=== PATIENT | male | born 1980 | race Caucasian/White ===

== ENCOUNTER 2017-10-11 09:50 | Inpatient (IN) | payer OTHER, SELFPAY ==
[~2017-10-11] VITALS: Ht 182.9 cm; Wt 96.9 kg
[2017-10-11] MEDS ORDERED: KETOROLAC 30 MG/1 ML IVPush ONE (10:30)
[2017-10-11 10:39] LABS: BASOPHILS # (AUTO) 0.05 x10^3/uL (0-0.1); BASOPHILS % (AUTO) 0 % (0-1); EOSINOPHILS # (AUTO) 0.18 x10^3/uL (0-0.4); EOSINOPHILS % (AUTO) 2 % (1-7); LYMPHOCYTES % (AUTO) 14 % (22-44); MD NO; MEAN CORPUSCULAR HEMOGLOBIN 30.5 pg (27.5-34.5); MEAN CORPUSCULAR HGB CONC 33.9 g/dL (33.2-36.2); MEAN CORPUSCULAR VOLUME 90.1 fL (81-97); MEAN PLATELET VOLUME 7.5 fL (7.4-10.4); MONOCYTES % (AUTO) 11 % (2-9); NEUTROPHILS # (AUTO) 7.59 x10^3/uL (1.8-6.8); NEUTROPHILS % (AUTO) 73 % (42-75); PLATELET COUNT 342 x10^3/uL (130-400); RED CELL DISTRIBUTION WIDTH 12.8 % (9.4-14.8)
[2017-10-11] MEDS ORDERED: KETOROLAC 30 MG/1 ML ONE (10:40)
[2017-10-11 10:46] LABS: ALBUMIN 3.5 g/dL (3.4-5.0); ANION GAP 9 mmol/L (5-15); CALCIUM 9.4 mg/dL (8.5-10.1); CHLORIDE 104 mmol/L (98-107); CREATININE 1.48 mg/dL (0.7-1.3)
[2017-10-11 10:47] LABS: INTERNATIONAL NORMALIZED RATIO 0.94 (0.93-1.1); PROTHROMBIN TIME 9.7 Seconds (9.6-11.5)
[2017-10-11 10:50] LABS: TROPONIN I < 0.015 ng/mL (0.000-0.045)
[2017-10-11] MEDS ORDERED: SODIUM CHLORIDE FLUSH 10ML SYR IVF ONE (11:30)
[2017-10-11] MEDS ORDERED: OMNIPAQUE 350 MG/ML, 100ML BOTTLE ONE (11:39)
[2017-10-11] MEDS ORDERED: HEPARIN 5,000 UNITS/ML, 1ML IV ONE ×2 (12:30→16:30)
[2017-10-11] MEDS ORDERED: HEPARIN 5,000 UNITS/ML, 1ML IV PRN (12:30)
[2017-10-11] MEDS ORDERED: HEPARIN 25,000 UNITS/500ML PMX 500 ML IV PRN ×2 (12:30→16:30)
[2017-10-11] MEDS ORDERED: HEPARIN 5,000 UNITS/ML, 1ML ONE ×2 (12:32→12:42)
[2017-10-11] MEDS ORDERED: HEPARIN 25,000 UNITS/500ML PMX 500 ML ONE (12:32)
[2017-10-11] MEDS ORDERED: SODIUM CHLORIDE FLUSH 10ML SYR IVF PRN (13:00)
[2017-10-11] MEDS ORDERED: ONDANSETRON 2MG/ML, 2ML ONE (13:53)
[2017-10-11] MEDS ORDERED: MORPHINE SULFATE 4 MG/ML, 1ML ONE (13:53)
[2017-10-11] MEDS ORDERED: HYDROmorphone 2 MG/ML, 1ML IVPush PRN (14:00)
[2017-10-11] MEDS ORDERED: MORPHINE SULFATE 4 MG/ML, 1ML IVPush PRN (14:00)
[2017-10-11] MEDS ORDERED: ONDANSETRON 2MG/ML, 2ML IVPush ONE (14:00)
[2017-10-11 15:15] VITALS: BP 125/83
[2017-10-11] MEDS ORDERED: ACETAMINOPHEN 325 MG TABLET PO PRN (16:00)
[2017-10-11] MEDS ORDERED: HYDROcodone/APAP 5/325 TABLET PO PRN (16:00)
[2017-10-11] MEDS ORDERED: TEMAZEPAM 15 MG CAPSULE PO PRN (16:00)
[2017-10-11] MEDS ORDERED: ONDANSETRON 2MG/ML, 2ML IVPush PRN (16:00)
[2017-10-11] MEDS ORDERED: BISACODYL 10 MG SUPP PR PRN (16:30)
[2017-10-11 16:50] LABS: MEAN CORPUSCULAR HEMOGLOBIN 30.6 pg (27.5-34.5); MEAN CORPUSCULAR HGB CONC 33.9 g/dL (33.2-36.2); MEAN CORPUSCULAR VOLUME 90.3 fL (81-97); MEAN PLATELET VOLUME 7.4 fL (7.4-10.4); PLATELET COUNT 333 x10^3/uL (130-400); RED BLOOD COUNT 4.87 x10^6/uL (4.38-5.82); RED CELL DISTRIBUTION WIDTH 12.8 % (9.4-14.8)
[2017-10-11 17:27] LABS: MD SCAN
[2017-10-11 17:28] LABS: BASOPHILS # (AUTO) 0.02 x10^3/uL (0-0.1); BASOPHILS % (AUTO) 0 % (0-1); EOSINOPHILS # (AUTO) 0.21 x10^3/uL (0-0.4); EOSINOPHILS % (AUTO) 3 % (1-7); LYMPHOCYTES # (AUTO) 2.08 x10^3/uL (1-3.4); LYMPHOCYTES % (AUTO) 27 % (22-44); MONOCYTES # (AUTO) 0.83 x10^3/uL (0.2-0.8); MONOCYTES % (AUTO) 11 % (2-9); NEUTROPHILS # (AUTO) 4.61 x10^3/uL (1.8-6.8); NEUTROPHILS % (AUTO) 60 % (42-75)
[2017-10-11] MEDS: SODIUM CHLORIDE 0.9% 1,000 ML IV SCH (18:41)
[2017-10-11] MEDS: HYDROmorphone 2 MG/ML, 1ML IVPush PRN (18:41)
[2017-10-11] MEDS: WARFARIN 7.5 MG TABLET PO-COUM SCH (18:43)
[2017-10-11 20:08] VITALS: BP 120/78
[2017-10-11] MEDS: HEPARIN 5,000 UNITS/ML, 1ML IV PRN (20:12)
[2017-10-11 21:00] VITALS: BP 120/62
[2017-10-12 00:16] VITALS: BP 108/71
[2017-10-12 02:46] LABS: INTERNATIONAL NORMALIZED RATIO 0.99 (0.93-1.1); PROTHROMBIN TIME 10.2 Seconds (9.6-11.5)
[2017-10-12 02:49] LABS: ALANINE AMINOTRANSFERASE 19 U/L (12-78); ANION GAP 6 mmol/L (5-15); CALCIUM 8.7 mg/dL (8.5-10.1); CHLORIDE 105 mmol/L (98-107); CREATININE 1.25 mg/dL (0.7-1.3)
[2017-10-12 02:53] LABS: ALKALINE PHOSPHATASE 80 U/L (45-117); BILIRUBIN,TOTAL 0.3 mg/dL (0.2-1.0); CHOL/HDL RATIO 3.1; CHOLESTEROL, TOTAL 138 mg/dL (140-239); HDL CHOL % 32 % (26-37); HDL CHOLESTEROL (DIRECT) 44 mg/dL (40-60); LDL CHOLESTEROL,CALCULATED 75 mg/dL (54-169); LDL/HDL RATIO 1.7 (0.5-3.0); TOTAL PROTEIN 6.8 g/dL (6.4-8.2); TRIGLYCERIDES 96 mg/dL (50-200); VLDL CHOLESTEROL 19 mg/dL (0-25)
[2017-10-12] MEDS: HEPARIN 5,000 UNITS/ML, 1ML IV PRN ×2 (02:57→09:42)
[2017-10-12] MEDS: SODIUM CHLORIDE 0.9% 1,000 ML IV SCH (04:38)
[2017-10-12 06:54] VITALS: BP 122/81
[2017-10-12] MEDS: POLYETHYLENE GLYCOL 17 GM PACKET PO SCH (08:40)
[2017-10-12 12:31] VITALS: BP 113/74
[2017-10-12] MEDS ORDERED: OMNIPAQUE 350 MG/ML, 100ML BOTTLE ONE (13:20)
[2017-10-12] MEDS: HYDROmorphone 2 MG/ML, 1ML IVPush PRN (15:08)
[2017-10-12] MEDS: ENOXAPARIN 100 MG/ML SQ SCH (15:48)
[2017-10-12] MEDS: WARFARIN 7.5 MG TABLET PO-COUM SCH (18:44)
[2017-10-12 19:46] VITALS: BP 126/79
[2017-10-13 01:02] VITALS: BP 131/70
[2017-10-13] MEDS: ENOXAPARIN 100 MG/ML SQ SCH (04:54)
[2017-10-13 05:41] LABS: INTERNATIONAL NORMALIZED RATIO 1.06 (0.93-1.1); PROTHROMBIN TIME 10.9 Seconds (9.6-11.5)
[2017-10-13 06:56] VITALS: BP 112/69
[2017-10-13] MEDS: POLYETHYLENE GLYCOL 17 GM PACKET PO SCH (08:55)
[2017-10-13] MEDS ORDERED: POLY17PO5 PO (11:35)
[2017-10-13] MEDS ORDERED: KETO10TA PO (11:35)
[2017-10-13] MEDS ORDERED: TRAM50TA2 PO (11:35)
[2017-10-13] MEDS ORDERED: SIMV20TA PO (11:35)
[2017-10-13] MEDS ORDERED: WARF7.5T PO-COUM (11:36)
[2017-10-13] MEDS ORDERED: ENOX100S4 SQ (11:36)
[2017-10-13 12:15] VITALS: BP 112/71
== END 2017-10-13 16:12 | disposition home or self-care (01) | DRG 682 ==
LOC: ED 12:40 → EDIP 12:41 → ED 12:45 → 4EST 14:56
PROVIDERS: ADMIT Internal Medicine; ATTEND Internal Medicine
DX: N17.0 Acute kidney failure with tubular necrosis (principal); I26.99 Other pulmonary embolism without acute cor pulmonale; K59.00 Constipation, unspecified; Z79.01 Long term (current) use of anticoagulants; Z82.49 Family history of ischemic heart disease and other diseases of the circulatory system; Z98.52 Vasectomy status
CPT/HCPCS: 36415; 71275; 74177; 80048; 80053; 80061; 81241; 82040; 83735; 84100; 84443; 84484; 85025; 85303; 85306; 85520; 85598; 85610; 85613; 85670; 85730; 85732; 86146; 86147; 93005; 93306; 96374; 96375; 99285; J1170; J1644; J1650; J1885; J2405; Q9967; J7030